=== PATIENT | male | born 1970 | race Caucasian/White ===

== ENCOUNTER → 2018-04-10 | Outpatient (REF) | payer OTHER ==
[~2018-04-10] MED LIST: CARBAMAZEPIN200 MG PO; DILAUDID 2MG2 MG/TA1 PO; LIQUITEARS OP; MEDDOSEPAK PO; NAPROSYN500 MG OR; PERCOGESI1 PO; PHENOBARB32.4 MG PO; PHENOBARB60 MG OR; SPRITAM500 MG PO; TEGRETOL XR400 MG OR
== END | disposition home or self-care (01) | DRG 101 ==
LOC: LABSPEC 07:17
PROVIDERS: ATTEND Nurse Practitioner Adult Health
DX: R56.9 Unspecified convulsions (principal)

== ENCOUNTER 2020-05-23 15:39 | Emergency (ER) | payer OTHER ==
[~2020-05-23] VITALS: Ht 185.4 cm; Wt 93.2 kg
[2020-05-23 19:15] VITALS: BP 128/92
--- NOTE | 2020-05-25 10:44 | NUR ---
Notified Nurse Dowling at [facility] [phone]) of positive Covid results. Results faxed to [phone].
== END 2020-05-23 19:15 | disposition designated cancer center or children's hospital (05) | DRG 183 ==
LOC: ED 15:39
DX: S22.41XA Multiple fractures of ribs, right side, initial encounter for closed fracture (principal); U07.1 COVID-19; W18.30XA Fall on same level, unspecified, initial encounter

== ENCOUNTER 2021-02-26 10:21 | Emergency (ER) | payer OTHER ==
[~2021-02-26] VITALS: Ht 185.4 cm; Wt 90.9 kg
[2021-02-26 10:35] VITALS: BP 128/83
[2021-02-26 11:35] LABS: HEMATOCRIT 40.3 % (39.0-50.0); HEMOGLOBIN 13.6 g/dl (14.0-18.0); IMMATURE GRANULOCYTES 0.1 % (0.0-5.0); MEAN CELL VOLUME 93.7 fL CALC (80.0-100.0); MEAN CORPUSCULAR HGB 31.6 pG CALC (26.0-32.0); MEAN CORPUSCULAR HGB CONC 33.7 g/dL CAL (32.0-36.0); NEUT# 7.05 thou/uL (1.82-7.42); RED BLOOD COUNT 4.3 mill/uL (4.70-6.10); RED CELL DISTRI WIDTH 12.1 % (11.5-15.5)
[2021-02-26 11:42] LABS: ACT PARTIAL THROMBO TIME 26.4 SECONDS (20.0-32.5); INTERNATIONAL NORMALIZED RATIO 1.1 RATIO (0.7-1.3); PROTHROMBIN TIME 11.2 SECONDS (9.0-12.5)
[2021-02-26 11:47] LABS: ALBUMIN 4.2 g/dL (3.2-5.0); ALKALINE PHOSPHATASE 87 u/l (38-126); ANION GAP 14 (6-22 (CALC)); BILIRUBIN, TOTAL 0.7 mg/dL (0.0-1.4); BUN 14 mg/dL (9-20); BUN/CREATININE RATIO 26 (12-20 (CALC)); CARBON DIOXIDE 29 mmol/l (22-30); CHLORIDE 96 mmol/l (95-108); CPK 284 u/l (52-200); CREATININE 0.6 mg/dL (0.7-1.3); ETHYL ALCOHOL 0 mg/dl (0-30); GFR > 60 ML/MIN (>=60 (CALC)); GFR FOR AFR.AMER. > 60 ML/MIN (>=60 (CALC)); LIPASE 51 u/l (23-300); POTASSIUM 3.5 mmol/l (3.5-5.1); SGOT/AST 38 u/l (17-59); SODIUM 134 mmol/l (137-146); TOTAL PROTEIN 7.5 g/dL (6.3-8.2)
== END 2021-02-26 13:21 | disposition short-term general hospital (02) | DRG 101 ==
LOC: ED 10:21
DX: G40.901 Epilepsy, unspecified, not intractable, with status epilepticus (principal); Z18.89 Other specified retained foreign body fragments; Z87.820 Personal history of traumatic brain injury; Z20.822 Contact with and (suspected) exposure to COVID-19
CPT/HCPCS: J1953; J2060

== ENCOUNTER 2022-07-30 07:28 | Day surgery (SDC) | payer OTHER ==
[~2022-07-30] VITALS: Ht 185.4 cm; Wt 99.8 kg
[~2022-07-30 07:28] MED LIST changes: +CEPHALEXIN500 M1 PO; +CLARITIN10 M1 PO; +METHOCARBAMOL750 MG PO
[2022-07-30] MEDS ORDERED: KEPPRA1000 MG PO (08:06)
[2022-07-30] MEDS ORDERED: TAMSULOSIN0.4 MG PO (08:07)
[2022-07-30] MEDS ORDERED: KEPPRA XR750 MG PO (08:07)
[2022-07-30] MEDS ORDERED: FINASTERIDE5 MG PO (08:07)
[2022-07-30 09:46] VITALS: BP 119/79
== END 2022-07-30 10:04 | disposition designated cancer center or children's hospital (05) | DRG 395 ==
LOC: ENDO 07:28 → ORM 08:45 → ENDO 08:45
PROVIDERS: ATTEND Surgery
PROC: 0DBH8ZX Excision of Cecum, Via Natural or Artificial Opening Endoscopic, Diagnostic (ICD-10-PCS; principal; 2022-07-30)
DX: K63.5 Polyp of colon (principal); K64.8 Other hemorrhoids; G40.909 Epilepsy, unspecified, not intractable, without status epilepticus; Z86.010 Personal history of colon polyps

== ENCOUNTER 2024-01-28 15:46 | Emergency (ER) | payer OTHER ==
[~2024-01-28] VITALS: Ht 185.4 cm; Wt 100.0 kg
[2024-01-28] VITALS (15 sets, daily range): BP systolic 106–135; BP diastolic 59–94
[~2024-01-28 15:46] MED LIST changes: +FINASTERIDE5 MG PO; +KEPPRA XR750 MG PO; +KEPPRA1000 MG PO; +TAMSULOSIN0.4 MG PO
[2024-01-28] MEDS ORDERED: SODIUM CHLORIDE 0.9% 1,000 ML IV ONE (16:00)
[2024-01-28] MEDS ORDERED: LEVETIRACETAM IV ONE (16:05)
[2024-01-28] MEDS ORDERED: SODIUM CHLORIDE 0.9% IV ONE (16:05)
[2024-01-28] MEDS ORDERED: PHENobarbital 65 MG/ML VIAL IV ONE (16:40)
[2024-01-28] MEDS ORDERED: TEGRETOL200 MG PO (17:04)
[2024-01-28] MEDS ORDERED: PROTONIX40 M2 PO (17:05)
[2024-01-28] MEDS ORDERED: ATORVASTATIN CA20 MG PO (17:07)
[2024-01-28] MEDS ORDERED: PHENOBARB64.8 MG PO (17:09)
[2024-01-28] MEDS ORDERED: IBUPROFEN600 MG PO (17:10)
[2024-01-28 17:30] LABS: BASO% 0.5 % (0-3); EOS% 3.4 % (0-8); HEMATOCRIT 37.7 % (39.0-50.0); HEMOGLOBIN 12.6 g/dl (14.0-18.0); IMMATURE GRANULOCYTES 0.3 % (0.0-5.0); LYMPH% 21.9 % (15-41); MEAN CORPUSCULAR HGB 31.4 pG CALC (26.0-32.0); MEAN CORPUSCULAR HGB CONC 33.4 g/dL CAL (32.0-36.0); MONO% 12.4 % (2-13); NEUT# 2.33 thou/uL (1.82-7.42); NEUT% 61.5 % (42-76); RED BLOOD COUNT 4.01 mill/uL (4.70-6.10); RED CELL DISTRI WIDTH 11.9 % (11.5-15.5)
[2024-01-28 17:45] LABS: ALKALINE PHOSPHATASE 66 u/l (38-126); BUN 13 mg/dL (9-20); BUN/CREATININE RATIO 19 (12-20 (CALC)); CARBON DIOXIDE 29 mmol/l (22-30); CREATININE 0.7 mg/dL (0.7-1.3); ESTIMATED GFR 110 ML/MIN (>=90 (CALC)); POTASSIUM 3.6 mmol/l (3.5-5.1); SGOT/AST 28 u/l (17-59); TOTAL PROTEIN 6.4 g/dL (6.3-8.2)
[2024-01-28 17:46] LABS: ANION GAP 7 (6-22 (CALC)); BILIRUBIN, TOTAL 0.4 mg/dL (0.2-1.3); CHLORIDE 109 mmol/l (95-108); SODIUM 141 mmol/l (137-146)
== END 2024-01-28 19:50 | disposition short-term general hospital (02) | DRG 101 ==
LOC: ED 15:46
PROVIDERS: Family Medicine
DX: G40.901 Epilepsy, unspecified, not intractable, with status epilepticus (principal); E78.5 Hyperlipidemia, unspecified; K21.9 Gastro-esophageal reflux disease without esophagitis; F03.90 Unspecified dementia, unspecified severity, without behavioral disturbance, psychotic disturbance, mood disturbance, and anxiety; Z87.820 Personal history of traumatic brain injury; Z20.822 Contact with and (suspected) exposure to COVID-19
CPT/HCPCS: J1953

== ENCOUNTER 2024-02-25 11:42 | Observation (INO) | payer OTHER ==
[2024-02-25] VITALS (29 sets, daily range): BP systolic 115–148; BP diastolic 48–82
[~2024-02-25] VITALS: Ht 185.4 cm; Wt 97.0 kg
[~2024-02-25 11:42] MED LIST changes: +ATORVASTATIN CA20 MG PO; +IBUPROFEN600 MG PO; +PHENOBARB64.8 MG PO; +PROTONIX40 M2 PO; +TEGRETOL200 MG PO
[2024-02-25] MEDS ORDERED: ASPIRIN 81 MG/TAB PO ONE (11:50)
[2024-02-25] MEDS ORDERED: KETOROLAC TROMETHAMINE 15 MG/ML SDV IV ONE (12:05)
[2024-02-25 12:12] LABS: BASO% 0.5 % (0-3); EOS% 0.7 % (0-8); HEMATOCRIT 44.4 % (39.0-50.0); HEMOGLOBIN 14.8 g/dl (14.0-18.0); IMMATURE GRANULOCYTES 0.2 % (0.0-5.0); LYMPH% 11.3 % (15-41); MEAN CELL VOLUME 93.3 fL CALC (80.0-100.0); MEAN CORPUSCULAR HGB 31.1 pG CALC (26.0-32.0); MEAN CORPUSCULAR HGB CONC 33.3 g/dL CAL (32.0-36.0); MONO% 6.6 % (2-13); NEUT# 4.62 thou/uL (1.82-7.42); NEUT% 80.7 % (42-76); RED BLOOD COUNT 4.76 mill/uL (4.70-6.10); RED CELL DISTRI WIDTH 11.9 % (11.5-15.5)
[2024-02-25 12:30] LABS: ALBUMIN 4.8 g/dL (3.2-5.0); ANION GAP 9 (6-22 (CALC)); BUN 14 mg/dL (9-20); BUN/CREATININE RATIO 18 (12-20 (CALC)); CARBON DIOXIDE 31 mmol/l (22-30); CHLORIDE 104 mmol/l (95-108); CREATININE 0.8 mg/dL (0.7-1.3); ESTIMATED GFR 105 ML/MIN (>=90 (CALC)); SODIUM 140 mmol/l (137-146)
[2024-02-25 12:50] LABS: ALKALINE PHOSPHATASE 149 u/l (38-126); BILIRUBIN, TOTAL 2.1 mg/dL (0.2-1.3); SGOT/AST 153 u/l (17-59); TOTAL PROTEIN 7.9 g/dL (6.3-8.2)
[2024-02-25 13:01] LABS: URINE BLOOD DIPSTICK Trace-intact (NEGATIVE); URINE GLUCOSE - DIPSTICK Negative (NEGATIVE); URINE KETONE Trace mg/dL (NEGATIVE); URINE LEUK ESTERASE Negative (NEGATIVE); URINE NITRITE - DIPSTICK Negative (Negative); URINE PROTEIN - DIPSTICK Negative (NEG-TRACE); URINE SPECIFIC GRAVITY 1.025
[2024-02-25 13:08] LABS: URINE COLOR Yellow
[2024-02-25] MEDS ORDERED: MORPHINE SULFATE 4 MG/ML VIAL IV ONE (15:45)
[2024-02-25] MEDS ORDERED: PIPERACILLIN Sodium-Tazobactam 3.375 GM in SODIUM CHLORIDE 0.9% 100 ML IV ONE (16:45)
[2024-02-25] MEDS ORDERED: MAGNESIUM HYDROXIDE 30 ML UDC PO PRN (17:15)
[2024-02-25] MEDS ORDERED: SODIUM CHLORIDE 0.9% 1,000 ML IV PRN (17:15)
[2024-02-25] MEDS ORDERED: ONDANSETRON HCl 4 MG/2 ML SDV IV PRN (17:15)
[2024-02-25] MEDS ORDERED: SODIUM CHLORIDE 0.9% 10 ML SYR IV PRN (17:15)
[2024-02-25] MEDS ORDERED: KETOROLAC TROMETHAMINE 30 MG/ML SDV IV PRN (17:20)
[2024-02-25] MEDS ORDERED: HYDROmorphone HCL 2 MG/AMP IV PRN (17:20)
[2024-02-25] MEDS ORDERED: MORPHINE SULFATE 4 MG/ML VIAL IV PRN (17:20)
[2024-02-25] MEDS ORDERED: Pantoprazole Sodium 40 MG VIAL (Protonix) IV SCH (18:00)
[2024-02-25] MEDS ORDERED: CARBAMAZEPINE 200 MG TAB PO SCH (21:00)
[2024-02-25] MEDS ORDERED: LevETIRAcetam 500 MG/TAB PO SCH (21:00)
[2024-02-25] MEDS ORDERED: ENOXAPARIN SODIUM 40 MG/0.4 ML SYR SC SCH (21:00)
[2024-02-25] MEDS ORDERED: SODIUM CHLORIDE 0.9% 10 ML SYR IV SCH (22:00)
[2024-02-25] MEDS ORDERED: KEPPRA750 M2 PO (22:31)
[2024-02-26] VITALS (19 sets, daily range): BP systolic 107–132; BP diastolic 52–69
[2024-02-26] MEDS ORDERED: PIPERACILLIN Sodium-Tazobactam 3.375 GM VIAL IV ONE (00:51)
[2024-02-26 06:03] LABS: BASO% 0.5 % (0-3); EOS% 3.6 % (0-8); HEMATOCRIT 38.5 % (39.0-50.0); HEMOGLOBIN 12.9 g/dl (14.0-18.0); LYMPH% 22.7 % (15-41); MEAN CELL VOLUME 93.9 fL CALC (80.0-100.0); MEAN CORPUSCULAR HGB 31.5 pG CALC (26.0-32.0); MEAN CORPUSCULAR HGB CONC 33.5 g/dL CAL (32.0-36.0); MONO% 13.5 % (2-13); NEUT# 2.29 thou/uL (1.82-7.42); NEUT% 59.7 % (42-76); RED BLOOD COUNT 4.1 mill/uL (4.70-6.10)
[2024-02-26 06:22] LABS: BILIRUBIN, TOTAL 1.8 mg/dL (0.2-1.3); CREATININE 0.8 mg/dL (0.7-1.3); MAGNESIUM 1.8 mg/dL (1.6-2.3); POTASSIUM 3.5 mmol/l (3.5-5.1)
[2024-02-26 06:25] LABS: ALBUMIN 3.6 g/dL (3.2-5.0)
[2024-02-26] MEDS ORDERED: TAMSULOSIN HCL 0.4 MG CAP PO SCH (08:00)
[2024-02-26] MEDS ORDERED: CARBAMAZEPINE 200 MG TAB PO SCH ×2 (09:00→21:00)
[2024-02-26] MEDS ORDERED: FINASTERIDE 5 MG/TAB PO SCH (09:00)
[2024-02-26] MEDS ORDERED: PIPERACILLIN Sodium-Tazobactam 3.375 GM in SODIUM CHLORIDE 0.9% 100 ML IV SCH ×3 (12:00→18:00)
[2024-02-26] MEDS ORDERED: GLUCAGON HCL (Rdna) 1 MG VIAL ONE (12:26)
[2024-02-26] MEDS ORDERED: Iopamidol 300 (Isovue) 61% 100ML SDV IV ONE (12:26)
[2024-02-26] MEDS ORDERED: LIDOcaine HCl 1% (Local Anesth.) 20 ML VIAL ONE (12:29)
[2024-02-26] MEDS ORDERED: FAMOTIDINE 10MG/ML 2ML SDV IV ONE (13:09)
[2024-02-26] MEDS ORDERED: PROPOFOL 200 MG/20 ML VIAL IV ONE (14:03)
[2024-02-26] MEDS ORDERED: ROCURONIUM BROMIDE 10 MG/ML 5ML VIAL IV ONE (14:03)
[2024-02-26] MEDS ORDERED: GLYCOPYRROLATE 0.2 MG/ML IV ONE (14:03)
[2024-02-26] MEDS ORDERED: LIDOCAINE HCL 2% 2ML SDV IV ONE (14:03)
[2024-02-26] MEDS ORDERED: SUGAMMADEX SODIUM 200 MG/2 ML SDV IV ONE (14:03)
[2024-02-26] MEDS ORDERED: KETOROLAC TROMETHAMINE 30 MG/ML SDV IV ONE (14:03)
[2024-02-26] MEDS ORDERED: SUCCINYLCHOLINE CHLORIDE 20 MG/ML 10ML VIAL IV ONE (14:03)
[2024-02-26] MEDS ORDERED: HYDROmorphone HCL 2 MG/AMP IV PRN (15:50)
[2024-02-26] MEDS ORDERED: oxyCODONE 5MG/ ACETAMINOPHEN 325MG TAB PO PRN (15:50)
[2024-02-26] MEDS ORDERED: ACETAMINOPHEN 100 ML IV ONE (15:53)
[2024-02-26] MEDS ORDERED: HYDROmorphone HCL 2 MG/AMP ONE (16:05)
[2024-02-26] MEDS ORDERED: SODIUM CHLORIDE 0.9% 1,000 ML IV ONE (16:31)
[2024-02-26] MEDS ORDERED: KETOROLAC TROMETHAMINE 15 MG/ML SDV IV SCH (18:00)
[2024-02-27 04:10] VITALS: BP 128/72
[2024-02-27 05:04] LABS: BASO% 0.5 % (0-3); EOS% 2.4 % (0-8); HEMATOCRIT 38.2 % (39.0-50.0); HEMOGLOBIN 12.9 g/dl (14.0-18.0); IMMATURE GRANULOCYTES 0.2 % (0.0-5.0); LYMPH% 17.9 % (15-41); MEAN CELL VOLUME 93.6 fL CALC (80.0-100.0); MEAN CORPUSCULAR HGB 31.6 pG CALC (26.0-32.0); MEAN CORPUSCULAR HGB CONC 33.8 g/dL CAL (32.0-36.0); MONO% 14.8 % (2-13); NEUT# 3.53 thou/uL (1.82-7.42); NEUT% 64.2 % (42-76); RED BLOOD COUNT 4.08 mill/uL (4.70-6.10); RED CELL DISTRI WIDTH 11.9 % (11.5-15.5)
[2024-02-27 05:37] LABS: ALBUMIN 3.2 g/dL (3.2-5.0); CREATININE 0.8 mg/dL (0.7-1.3); MAGNESIUM 1.7 mg/dL (1.6-2.3); POTASSIUM 3.5 mmol/l (3.5-5.1); TOTAL PROTEIN 5.5 g/dL (6.3-8.2)
[2024-02-27 05:45] LABS: BILIRUBIN, TOTAL 0.9 mg/dL (0.2-1.3)
[2024-02-27] MEDS ORDERED: PERCOCET 5/325M1 TAB PO (07:18)
[2024-02-27 07:33] VITALS: BP 106/54
== END 2024-02-27 11:13 | disposition designated cancer center or children's hospital (05) | DRG 419 ==
LOC: ED 11:42 → ED-I 16:30 → ED 16:45 → MS2 16:46
PROVIDERS: Family Medicine; Nurse Practitioner Family; ADMIT Student in an Organized Health Care Education/Training Program; ATTEND Student in an Organized Health Care Education/Training Program
PROC: 0FT44ZZ Resection of Gallbladder, Percutaneous Endoscopic Approach (ICD-10-PCS; principal; 2024-02-26)
PROC: BF001ZZ Plain Radiography of Bile Ducts using Low Osmolar Contrast (ICD-10-PCS; 2024-02-26)
DX: K80.12 Calculus of gallbladder with acute and chronic cholecystitis without obstruction (principal); K21.9 Gastro-esophageal reflux disease without esophagitis; G40.909 Epilepsy, unspecified, not intractable, without status epilepticus; N40.0 Benign prostatic hyperplasia without lower urinary tract symptoms; F03.90 Unspecified dementia, unspecified severity, without behavioral disturbance, psychotic disturbance, mood disturbance, and anxiety; Z87.820 Personal history of traumatic brain injury
CPT/HCPCS: G0378; J0131; J1610; J1650; J2470; Q9966; Q9967

== ENCOUNTER 2024-08-02 10:25 | Day surgery (SDC) | payer OTHER ==
[~2024-08-02] VITALS: Ht 185.4 cm; Wt 99.8 kg
[~2024-08-02 10:25] MED LIST changes: +ACETAMINOPHEN325 MG PO; +KEPPRA750 M2 PO; +MOTRIN400 MG/TAB PO; +PERCOCET 5/325M1 TAB PO; +TRAMADOL HYDROC50 M1 PO
[2024-08-02] MEDS ORDERED: FAMOTIDINE 10MG/ML 2ML SDV IV ONE (11:12)
[2024-08-02] MEDS ORDERED: LACTATED RINGER'S 1,000 ML IV ONE (11:13)
[2024-08-02] MEDS ORDERED: LIDOCAINE HCL 2% 2ML SDV IV ONE (13:15)
[2024-08-02] MEDS ORDERED: PROPOFOL 200 MG/20 ML VIAL IV ONE (13:15)
[2024-08-02] MEDS ORDERED: GLYCOPYRROLATE 0.2 MG/ML IV ONE (13:15)
[2024-08-02 13:17] VITALS: BP 127/70
== END 2024-08-02 13:38 | disposition designated cancer center or children's hospital (05) | DRG 392 ==
LOC: ORM 10:25
PROVIDERS: ATTEND Surgery
PROC: 0DJD8ZZ Inspection of Lower Intestinal Tract, Via Natural or Artificial Opening Endoscopic (ICD-10-PCS; principal; 2024-08-02)
DX: R19.5 Other fecal abnormalities (principal); K64.8 Other hemorrhoids; K64.5 Perianal venous thrombosis; G40.909 Epilepsy, unspecified, not intractable, without status epilepticus
CPT/HCPCS: J1596